=== PATIENT | male | born 1960 | race Caucasian/White ===

== ENCOUNTER 2016-11-22 06:50 | Day surgery (SDC) | payer OTHER ==
--- NOTE | ~2016-11-22 | OP ---
Record Of Operation [facility] [address] [place]. [address] NAME: RONAN JUAREZ : 58 STATUS : REG [facility] PAT#: [id number] AGE: 56 ADM/REG DATE : 11/22/16 MR#: [id number] REPORT SERV DATE: 11/22/16 DICTATED BY: QUANG SALCIDO DATE: 11/22/16 REPORT STATUS : Draft TRANSCRIBED BY: MODL DATE: 11/22/16 DATE OF PROCEDURE: 11/22/2016 PROCEDURE: Bronchoscopy with airway examination and bronchoalveolar lavage. INDICATION FOR PROCEDURE: The patient has had a persistent cough and sputum production despite treatment and concern of atypical infection and in need of an airway examination per the patient's primary supervisor [employer], Dr. Mackey. PREOPERATIVE DIAGNOSIS: Chronic cough. POSTOPERATIVE DIAGNOSIS: Chronic cough. PROCEDURE NOTE: The patient was brought to the bronchoscopy suite, he was given an LMA for airway protection with anesthesia on board. We sprayed lidocaine over the vocal cords. Once we intubated past the vocal cords, we then sprayed lidocaine down the trachea, right and left mainstem. The florence was crisp. No endobronchial lesions noted throughout the whole tracheobronchial tree other than some small white endobronchial lesions, which are reminiscent of sarcoid-type lesions, but they were not seen anywhere else, nor was the patient noted to have any mediastinal adenopathy on CT scan prior. We conducted a bronchoalveolar lavage of the lingula using two aliquots and had return of about 35 to 40 mL. There was no significant bleeding and/or other abnormality. We completed the procedure. OUTCOME: Successful bronchoscopy for BAL of the lingula. PLAN: The patient is to follow up with his primary supervisor [employer] and cytology along with microbiological studies, shall be completed by that time. HFQ/CHELITA Quang Salcido MD / [id number] CC: Quang Salcido MD NO PCP
[~2016-11-22 06:50] MED LIST: ADVAIR250 INH; ALLEGRA180 PO; ASAB PO; BREATHING TREATMENT; COMBIVENT RESPIM4 GM INH; COREG3 PO; DALIRESP500 MCG PO; FLONASE NAS; HALF81 PO; HCTZ25B PO; HYDROCHLOROT25 MG PO; HYGROTON 25 MG25 MG PO; INCRUSE ELLI62.5 MCG INH; LAMICTAL10 PO; LAMICTAL150 MG PO; LIPITOR10 PO; LIPITOR20 PO; MIRAPEX5 PO; MOBIC15 MG PO; NITROSTAT0.4 MG SL; NORV10 PO; PRILO PO; PROBIOTICS; PROZAC40 MG PO; SINGULAIR1 PO; SPIRIVA INH; TRAZ100 PO; [UNRECOGNIZED DRUG - OTHER]
[2016-11-22 07:22] LABS: HEMATOCRIT 41.1 % (40.0-51.0); HEMOGLOBIN 14.5 g/dL (13.6-17.8)
[2016-11-22 07:23] LABS: CHLORIDE, SERUM 104 MMOL/L (96-112); PARTIAL THROMBO TIME 31.7 SEC (22.5-37.2); PROTIME (NOT ORD) 13.3 SEC (12.0-14.5); SODIUM, SERUM 141 MMOL/L (135-148)
[2016-11-22 07:29] LABS: CALCIUM, SERUM 9.1 MG/DL (8.5-10.4); CO2 (CARBON DIOXIDE) 27 MMOL/L (24-34); GFR AFRICAN AMERICAN 109 ML/MIN (>=60); GFR NON AFRICAN AMERICAN 94 ML/MIN (>=60); GLUCOSE, SERUM 102 MG/DL (60-99)
[2016-11-22 07:31] LABS: BUN (BLOOD UREA NITROGEN) 13 MG/DL (6-23)
[2016-11-22 10:50] LABS: BD FL LYMPH (NOT ORD) 11 %; BD FL SOURCE (NOT ORD) BAL; BF BASO (NOT OF) 0 %; BF LARGE MONONUCLEAR 82 %; BF TOTAL CELL CT (NOT ORD 194 /MM3; BODY FLUID EOS (NOT ORD) 0 %; BODY FLUID SEG (NOT ORD) 7 %
[2016-11-22 10:51] LABS: BODY FLUID RBC (NOT ORD) < 1000 /MM3
== END 2016-11-22 23:59 | disposition home or self-care (01) ==
LOC: DMU 06:50
PROVIDERS: Internal Medicine Critical Care Medicine
PROC: 0BJ08ZZ Inspection of Tracheobronchial Tree, Via Natural or Artificial Opening Endoscopic (ICD-10-PCS; principal; 2016-11-22 08:30)
PROC: 0B9G8ZX Drainage of Left Upper Lung Lobe, Via Natural or Artificial Opening Endoscopic, Diagnostic (ICD-10-PCS; 2016-11-22 08:30)
DX: R05 Cough (principal); G47.33 Obstructive sleep apnea (adult) (pediatric); I35.0 Nonrheumatic aortic (valve) stenosis; K21.9 Gastro-esophageal reflux disease without esophagitis; J44.1 Chronic obstructive pulmonary disease with (acute) exacerbation; F32.9 Major depressive disorder, single episode, unspecified; E78.00 Pure hypercholesterolemia, unspecified; I10 Essential (primary) hypertension; Z87.891 Personal history of nicotine dependence; Z88.1 Allergy status to other antibiotic agents; Z91.040 Latex allergy status; Z88.5 Allergy status to narcotic agent; Z98.890 Other specified postprocedural states
CPT/HCPCS: 80048; 85014; 85018; 85610; 85730; 87015; 87070; 87102; 87107; 87116; 87205; 88112; 89051; 93005; A9270-GY

== ENCOUNTER 2017-02-15 08:42 | Observation (INO) | payer OTHER ==
[~2017-02-15] VITALS: Ht 193 cm; Wt 104.0 kg
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
[2017-02-15] MEDS ORDERED: BIOFREEZE TOP (09:52)
[2017-02-15 10:08] LABS: BASOPHILS 0.5 %; BASOPHILS ABSOLUTE 0.03 10/3/uL (0.0-0.16); EOSINOPHILS 1.4 %; EOSINOPHILS ABSOLUTE 0.08 10/3/uL (0.0-0.53); HEMATOCRIT 39.8 % (40.0-51.0); HEMOGLOBIN 13.8 g/dL (13.6-17.8); IMMATURE GRANULOCYTES 0.2 %; IMMATURE GRANULOCYTES ABSOLUTE 0.01 10/3/uL (0.0-0.11); LYMPHOCYTES 30.1 %; MEAN CORPUS HGB CONC 34.7 g/dL (32.0-36.0); MEAN CORPUSCULAR VOLUME 89.4 fL (80-100); MEAN PLATELET VOLUME 10.6 fL (9.2-13.0); MONOCYTES 10.6 %; NEUTROPHILS 57.2 %; NEUTROPHILS ABSOLUTE 3.22 10/3/uL (2.02-8.40); PLATELET COUNT 234 10/3/uL (150-400); RBC DISTRIBUTION WIDTH 12.7 % (12.0-16.0); RED CELL COUNT 4.45 10/6/uL (4.7-6.1); WHITE BLOOD CELLS 5.6 10/3/uL (4.5-10.5)
[2017-02-15 10:10] LABS: MANUAL DIFF NO %
[2017-02-15 10:20] LABS: PARTIAL THROMBO TIME 29.7 SEC (22.5-37.2); PROTIME (NOT ORD) 13.3 SEC (12.0-14.5)
[2017-02-15 10:28] LABS: BUN (BLOOD UREA NITROGEN) 9 MG/DL (6-23); CALCIUM, SERUM 8.8 MG/DL (8.5-10.4); CHEST PAIN PROFILE TAT 0 Hrs 24 Mins; CHLORIDE, SERUM 105 MMOL/L (96-112); CO2 (CARBON DIOXIDE) 29 MMOL/L (24-34); CREATININE 0.86 MG/DL (0.70-1.30); GFR AFRICAN AMERICAN 112 ML/MIN (>=60); GFR NON AFRICAN AMERICAN 96 ML/MIN (>=60); GLUCOSE, SERUM 85 MG/DL (60-99); POTASSIUM, SERUM 3.1 MMOL/L (3.5-5.3); SODIUM, SERUM 141 MMOL/L (135-148); TROPONIN I <0.02 NG/ML (<0.05)
[2017-02-15 17:41] LABS: TROPONIN I <0.02 NG/ML (<0.05)
[2017-02-15 20:37] LABS: POTASSIUM, SERUM 3.1 MMOL/L (3.5-5.3)
[2017-02-16 05:13] LABS: BUN (BLOOD UREA NITROGEN) 10 MG/DL (6-23); CHLORIDE, SERUM 107 MMOL/L (96-112); CO2 (CARBON DIOXIDE) 29 MMOL/L (24-34); CREATININE 0.83 MG/DL (0.70-1.30); GFR AFRICAN AMERICAN 113 ML/MIN (>=60); GFR NON AFRICAN AMERICAN 98 ML/MIN (>=60); GLUCOSE, SERUM 98 MG/DL (60-99); POTASSIUM, SERUM 3.2 MMOL/L (3.5-5.3); SODIUM, SERUM 141 MMOL/L (135-148)
[2017-02-17] MEDS ORDERED: KDUR20 PO (16:15)
== END 2017-02-17 16:40 | disposition home or self-care (01) ==
LOC: ER 08:42 → CDU1 11:17 → CDU2 12:20 → CDU1 13:34
PROVIDERS: Hospitalist; Nurse Practitioner
DX: R07.2 Precordial pain (principal); I35.0 Nonrheumatic aortic (valve) stenosis; E87.6 Hypokalemia; I10 Essential (primary) hypertension; E78.2 Mixed hyperlipidemia; F42.9 Obsessive-compulsive disorder, unspecified; F31.9 Bipolar disorder, unspecified; J44.9 Chronic obstructive pulmonary disease, unspecified; G47.33 Obstructive sleep apnea (adult) (pediatric); Z79.82 Long term (current) use of aspirin; Z79.899 Other long term (current) drug therapy; Z87.891 Personal history of nicotine dependence; Z82.49 Family history of ischemic heart disease and other diseases of the circulatory system; Z96.652 Presence of left artificial knee joint; Z88.8 Allergy status to other drugs, medicaments and biological substances; Z88.1 Allergy status to other antibiotic agents; Z91.040 Latex allergy status; Z98.890 Other specified postprocedural states
CPT/HCPCS: 71010; 78452; 80048; 83735; 84132; 84484; 85025; 85610; 85730; 93005; 93017; 93306; 94640; 99285; A9270-GY; A9502; G0378; J0153